=== PATIENT | male | born 1980 | race Caucasian/White ===

== ENCOUNTER 2016-08-10 21:08 | Emergency (ER) | payer SELFPAY ==
[2016-08-10 22:27] VITALS: BP 116/69
[2016-08-10] MEDS ORDERED: HYDROcodone/ACETAMIN 5-325 MG* 1 TAB PO ONE (22:44)
--- NOTE | 2016-08-10 22:50 | RAD ---
INDICATION: Left hand injury. TECHNIQUE: 4 views of the left hand were obtained. FINDINGS: The bones are in normal alignment. No fracture is seen. Joint spaces appear maintained. IMPRESSION: NO EVIDENCE FOR FRACTURE.
[2016-08-10] MEDS ORDERED: Tetan/Diph/Pertus SYR(Tdap)* 0.5 ML SYR(BOOSTRIX) use SYR IM ONE (23:04)
--- NOTE | 2016-08-11 00:26 | UC ---
Juloi Dupree Janilya, scribed for Lisa Plata MD on 08/10/16 at 2237 . Hand/Wrist HPI - HPI Summary HPI Summary: A 35 y/o male came in to [facility] presenting w/ a sudden onset of constant hand pain that happened today at 1500. Severity rated 6/10. He states his hand got caught in a loop of cable in a machine, which pulled his hand for couple feet. There is a skin scrape, but no obvious injuries. There is swelling and redness. Pt took 3 Ibuprofens for the pain. This is not due to a work injury. Last tetanus unrecalled. - History Of Current Complaint Chief Complaint: UCUpperExtremity Stated Complaint: HAND INJURY Hx Obtained From: Patient Onset/Duration: Sudden Onset, Lasting Hours, Still Present Severity Initially: Moderate Severity Currently: Moderate Pain Intensity: 6 Pain Scale Used: 0-10 Numeric Character Of Pain: Aching Aggravating Factor(s): Movement Alleviating: Nothing Associated Signs And Symptoms: Positive: Swelling, Redness Related History: Dominant Hand Right - Allergies/Home Medications Allergies/Adverse Reactions: Allergies Allergy/AdvReac Type Severity Reaction Status Date / Time Bee Venom Allergy Swelling Verified 08/10/16 22:27 Home Medications: Home Medications Ibuprofen TAB* [Advil TAB*] 600 mg PO PRN 08/10/16 [History] PMH/Surg Hx/FS Hx/Imm Hx Previously Healthy: Yes Endocrine History Of: Denies: Diabetes, Thyroid Disease Cardiovascular History Of: Denies: Cardiac Disorders, Hypertension Respiratory History Of: Denies: COPD, Asthma GI/ History Of: Denies: Ulcer - Surgical History Surgical History: Yes Surgery Procedure, Year, and Place: Pin Right Third Finger, 2004, [facility], TOE SPLINTER - Family History Known Family History: Positive: Hypertension, Diabetes - Social History Occupation: Employed Full-time Lives: With Family Alcohol Use: None Substance Use Type: None Smoking Status (MU): Never Smoked Tobacco - Immunization History Most Recent Influenza Vaccination: Not the 2014/2015 Season Review of Systems Constitutional: Negative Skin: Negative Eyes: Negative ENT: Negative Respiratory: Negative Cardiovascular: Negative Gastrointestinal: Negative Genitourinary: Negative Motor: Negative Neurovascular: Negative Musculoskeletal: Arthralgia - hand pain, Myalgia - hand pain, Other: - swelling and erythema of hand Neurological: Negative Psychological: Negative All Other Systems Reviewed And Are Negative: Yes Physical Exam Triage Information Reviewed: Yes Appearance: Well-Appearing, Well-Nourished, Pain Distress Vital Signs: Initial Vital Signs Temp 97.8 F 08/10/16 22:21 Pulse 77 08/10/16 22:21 Resp 16 08/10/16 22:21 BP 116/69 08/10/16 22:21 Pulse Ox 97 08/10/16 22:21 Vital Signs Reviewed: Yes Eyes: Positive: Conjunctiva Clear ENT: Positive: Normal ENT inspection, Hearing grossly normal. Negative: Muffled /hoarse voice Neck: Positive: Supple Respiratory: Positive: Lungs clear, Normal breath sounds, No respiratory distress Cardiovascular: Positive: RRR, No Murmur, Pulses Normal, Brisk Capillary Refill Musculoskeletal: Positive: Strength Intact, ROM Intact, Other: - swelling and abrasions 3rd and 4th Metacarpals left hand Neurological: Positive: Alert, Muscle Tone Normal Psychological Exam: Normal Skin Exam: Other - Superficial abrasions of 3rd and 4th metacarpals of dorsal left hand. Swelling in dorsum and palmar surface of left hand. Diagnostics - Radiology hand Xray Xray Interpretation: No Acute Changes - IMPRESSION: No evidence of fracture. Radiology Interpretation Completed By: Radiologist Hand/Wrist Course/Dx - Differential Dx/Diagnosis Differential Diagnosis/HQI/PQRI: Abrasion, Contusion, Fracture, Sprain, Strain Provider Diagnoses: left hand contusion Discharge - Discharge Plan Condition: Stable Disposition: HOME Patient Education Materials: Contusion in Adults (ED), Diphtheria/Acellular Pertussis/Tetanus Vaccine (By injection) Referrals: [facility] [Outside] - 2 Days Taiwo Dalton MD [Medical Doctor] - If Needed (orthopedist, as needed) Additional Instructions: Use ice and the chay for comfort as needed for the next 48 hrs. You may take tylenol or ibuprofen for pain as directed, as needed. Your tetanus shot was updated tonight. It is good for 10 years. Return to urgent care if you have any new or worsening symptoms. The documentation as recorded by the Julio samuel Janilya accurately reflects the service I personally performed and the decisions made by , Lisa Plata MD.
== END 2016-08-10 23:45 | disposition home or self-care (01) ==
LOC: UCEAST 21:08
DX: S60.222A Contusion of left hand, initial encounter (principal); W31.9XXA Contact with unspecified machinery, initial encounter; Y93.9 Activity, unspecified; Y92.9 Unspecified place or not applicable; Z23 Encounter for immunization
CPT/HCPCS: 90471; 90715; 99213; G0463

== ENCOUNTER 2017-01-16 21:40 | Emergency (ER) | payer SELFPAY ==
[2017-01-16 21:49] VITALS: BP 119/77
--- NOTE | 2017-01-16 22:04 | UC ---
Skin Complaint HPI - HPI Summary HPI Summary: skin lesion x 4 months located back of his neck + burning, has been seen multiple times at the urgent care, had treatment for bacterial infection/ tried steroids , nothing has been helping - History of Current Complaint Chief Complaint: UCSkin Time Seen by Provider: 01/16/17 21:42 Stated Complaint: RASH BACK OF NECK Hx Obtained From: Patient Onset/Duration: Gradual Onset, Lasting Weeks - 16, Still Present Timing: Constant Onset Severity: Moderate Current Severity: Moderate Location: Discrete - posterior neck Character: Redness Aggravating Factor(s): Nothing Alleviating Factor(s): Nothing Associated Signs & Symptoms: Positive: Rash - Allergy/Home Medications Allergies/Adverse Reactions: Allergies Allergy/AdvReac Type Severity Reaction Status Date / Time Bee Venom Allergy Swelling Verified 01/16/17 21:49 Review of Systems Constitutional: Negative Skin: Rash Eyes: Negative ENT: Negative Respiratory: Negative Cardiovascular: Negative Is Patient Immunocompromised?: No All Other Systems Reviewed And Are Negative: Yes PMH/Surg Hx/FS Hx/Imm Hx Previously Healthy: Yes - Surgical History Surgical History: Yes Surgery Procedure, Year, and Place: Pin Right Third Finger, 2004, [facility], TOE SPLINTER - Family History Known Family History: Positive: None, Hypertension, Diabetes - Social History Alcohol Use: None Substance Use Type: None Smoking Status (MU): Never Smoked Tobacco - Immunization History Most Recent Influenza Vaccination: Not the Season Physical Exam Triage Information Reviewed: Yes Appearance: Well-Appearing, No Pain Distress, Well-Nourished Vital Signs: Initial Vital Signs Temp 98.3 F 01/16/17 21:44 Pulse 76 01/16/17 21:44 Resp 16 01/16/17 21:44 BP 119/77 01/16/17 21:44 Pulse Ox 100 01/16/17 21:44 Vital Signs Reviewed: Yes Eye Exam: Normal ENT Exam: Normal ENT: Positive: Normal ENT inspection, Hearing grossly normal Neck exam: Normal Neck: Positive: Supple, Nontender, No Lymphadenopathy Respiratory: Positive: Chest non-tender, Lungs clear, Normal breath sounds, No respiratory distress Cardiovascular: Positive: RRR, No Murmur, Pulses Normal Abdominal Exam: Normal Skin: Positive: rashes - ulceration posterior neck , + erythema, not tender, no discharge Course/Dx - Diagnoses Provider Diagnoses: dermatitis neck Discharge - Discharge Plan Condition: Stable Disposition: HOME Prescriptions: Nystatin/Triamcinolone CR(NF) [Mycolog CREAM(NF)] 1 applic TOPICAL BID #60 gm Patient Education Materials: Dermatitis (ED) Referrals: No Primary Care Phys,NOPCP [Primary Care Provider] - Jeyson CARO,Armen Munoz [Medical Doctor] - As Soon As Possible
== END 2017-01-16 22:05 | disposition home or self-care (01) ==
LOC: UCCORT 21:40
DX: L30.9 Dermatitis, unspecified (principal)
CPT/HCPCS: 99212; G0463

== ENCOUNTER 2017-02-05 08:55 | Emergency (ER) | payer SELFPAY ==
[2017-02-05 09:24] VITALS: BP 132/72
--- NOTE | 2017-02-05 10:52 | UC ---
Throat Pain/Nasal Maxim HPI - HPI Summary HPI Summary: ONE WEEK OF COUGH, HEAD CONGESTION, HEADACHE. FEVER UNKNOWN. - History of Current Complaint Chief Complaint: UCGeneralIllness Stated Complaint: CONGESTION Time Seen by Provider: 02/05/17 10:13 Hx Obtained From: Patient Onset/Duration: Gradual Onset, Lasting Weeks, Still Present Severity: Moderate Cough: Nonproductive Associated Signs & Symptoms: Positive: Hoarseness, Sinus Discomfort, Nasal Discharge - Epiglottits Risk Factors Epiglottis Risk Factors: Negative - Allergies/Home Medications Allergies/Adverse Reactions: Allergies Allergy/AdvReac Type Severity Reaction Status Date / Time Bee Venom Allergy Swelling Verified 02/05/17 09:20 PMH/Surg Hx/FS Hx/Imm Hx Previously Healthy: Yes - Surgical History Surgical History: Yes Surgery Procedure, Year, and Place: Pin Right Third Finger, 2004, [facility], TOE SPLINTER - Family History Known Family History: Positive: None, Hypertension, Diabetes - Social History Occupation: Employed Full-time Lives: With Family Alcohol Use: None Substance Use Type: None Smoking Status (MU): Never Smoked Tobacco - Immunization History Most Recent Influenza Vaccination: Not the Season Review of Systems Constitutional: Fatigue Skin: Negative Eyes: Negative ENT: Nasal Discharge, Sinus Congestion, Sinus Pain/Tenderness Respiratory: Cough Cardiovascular: Negative Gastrointestinal: Negative Genitourinary: Negative Motor: Negative Neurovascular: Negative Musculoskeletal: Negative Neurological: Negative Psychological: Negative Is Patient Immunocompromised?: No All Other Systems Reviewed And Are Negative: Yes Physical Exam Triage Information Reviewed: Yes Appearance: Well-Appearing, No Pain Distress, Well-Nourished Vital Signs: Initial Vital Signs Temp 98.5 F 02/05/17 09:20 Pulse 78 02/05/17 09:20 Resp 16 02/05/17 09:20 BP 132/72 02/05/17 09:20 Pulse Ox 98 02/05/17 09:20 Vital Signs Reviewed: Yes Eye Exam: Normal ENT: Positive: Hearing grossly normal, Nasal congestion, TM bulging, TM dull Dental Exam: Normal Neck exam: Normal Neck: Positive: Supple, Nontender, No Lymphadenopathy Respiratory Exam: Normal Respiratory: Positive: Chest non-tender, Lungs clear, Normal breath sounds, No respiratory distress, No accessory muscle use Cardiovascular Exam: Normal Cardiovascular: Positive: RRR, No Murmur, Pulses Normal Abdominal Exam: Normal Musculoskeletal Exam: Normal Musculoskeletal: Positive: Strength Intact, ROM Intact Neurological Exam: Normal Psychological Exam: Normal Skin Exam: Normal Throat Pain/Nasal Course/Dx - Differential Dx/Diagnosis Differential Diagnosis/HQI/PQRI: Pharyngitis, Sinusitis, Tonsillitis, URI Provider Diagnoses: SINUSITIS Discharge - Discharge Plan Condition: Stable Disposition: HOME Prescriptions: Amoxicillin/Clavulanate TAB* [Augmentin TAB 875*] 875 mg PO BID #20 tab Benzonatate CAP* [Tessalon 100 MG CAP*] 100 mg PO TID PRN #15 cap PRN Reason: Cough Patient Education Materials: Sinusitis (ED) Referrals: [facility] [place] [facility] [Outside] No Primary Care Phys,NOPCP [Primary Care Provider] -
== END 2017-02-05 10:35 | disposition home or self-care (01) ==
LOC: UCEAST 08:55
DX: J32.9 Chronic sinusitis, unspecified (principal)
CPT/HCPCS: 99212; G0463

== ENCOUNTER 2017-04-08 09:15 | Emergency (ER) | payer MEDICAID ==
--- NOTE | 2017-04-08 11:05 | UC ---
Respiratory Complaint HPI - HPI Summary HPI Summary: 36 yo male with <48 hour hx of cough/congestion/fever/chills and severe myalgias Very fatigued no n/v/d no cp or sob sinus pressure/marrero and postnasal drip mild sore throat - History of Current Complaint Chief Complaint: UCRespiratory Stated Complaint: SORE THROAT COUGH CONGESTION Time Seen by Provider: 04/08/17 10:30 Hx Obtained From: Patient Onset/Duration: Gradual Onset, Lasting Days Timing: Constant Severity Initially: Mild Severity Currently: Moderate Pain Intensity: 7 Pain Scale Used: 0-10 Numeric Aggravating Factors: Deep Breaths, Nothing Alleviating Factors: Nothing Associated Signs And Symptoms: Positive: Fever, Chills, Nasal Congestion, Sinus Discomfort - Allergies/Home Medications Allergies/Adverse Reactions: Allergies Allergy/AdvReac Type Severity Reaction Status Date / Time Bee Venom Allergy Swelling Verified 04/08/17 10:25 Home Medications: Home Medications Phenylephrine-Chlorpheniramine [Camila-[place] Plus Cold &] 2 cap PO PRN 04/08/17 [History] PMH/Surg Hx/FS Hx/Imm Hx Previously Healthy: Yes - Surgical History Surgical History: Yes Surgery Procedure, Year, and Place: Pin Right Third Finger, 2004, [facility], TOE SPLINTER - Family History Known Family History: Positive: Hypertension, Diabetes - Social History Alcohol Use: None Substance Use Type: None Smoking Status (MU): Never Smoked Tobacco - Immunization History Most Recent Influenza Vaccination: Not the Season Review of Systems Constitutional: Fever, Chills, Fatigue Skin: Negative Eyes: Negative ENT: Sore Throat, Nasal Discharge, Sinus Congestion, Sinus Pain/Tenderness Respiratory: Cough Cardiovascular: Negative Gastrointestinal: Negative Genitourinary: Negative Motor: Negative Neurovascular: Negative Musculoskeletal: Myalgia Neurological: Negative Psychological: Negative Is Patient Immunocompromised?: No All Other Systems Reviewed And Are Negative: Yes Physical Exam Triage Information Reviewed: Yes Appearance: Well-Appearing, No Pain Distress, Well-Nourished Vital Signs: Initial Vital Signs Temp 97.3 F 04/08/17 10:22 Pulse 63 04/08/17 10:22 Resp 16 04/08/17 10:22 BP 98/63 04/08/17 10:22 Pulse Ox 100 04/08/17 10:22 Vital Signs Reviewed: Yes Eyes: Positive: Conjunctiva Clear ENT: Positive: Hearing grossly normal, Pharyngeal erythema, Nasal drainage, TMs normal, Uvula midline. Negative: Tonsillar swelling, Tonsillar exudate, Muffled voice, Hoarse voice, Dental tenderness, Sinus tenderness Neck: Positive: Supple, Nontender, No Lymphadenopathy Respiratory: Positive: No respiratory distress, No accessory muscle use, Crackles - right base Cardiovascular: Positive: RRR, No Murmur Musculoskeletal: Positive: ROM Intact, No Edema Neurological: Positive: Alert Psychological Exam: Normal Skin Exam: Normal UC Diagnostic Evaluation - Laboratory Pertinent Lab Values Are: WNL - RAPID INFLUENZA (-) O2 Sat by Pulse Oximetry: 100 - normal/not hypoxic - Radiology Xray Interpretation: No Acute Changes - cxr Radiology Interpretation Completed By: Radiologist Respiratory Course/Dx - Differential Dx/Diagnosis Provider Diagnoses: ACUTE BRONCHITIS Discharge - Discharge Plan Condition: Stable Disposition: HOME Prescriptions: Amoxicillin PO (*) [Amoxicillin 875 MG (*)] 875 mg PO BID #20 tab Patient Education Materials: Acute Bronchitis (ED) Forms: *Work Release Referrals: [facility] [place] [facility] [Outside] - If Needed (call to find a local MD) Additional Instructions: recheck in four days if not better sooner for worsening symptoms
--- NOTE | 2017-04-08 11:37 | RAD ---
HISTORY: Cough, fever, right lower lobe rales COMPARISONS: None VIEWS: 4: Frontal dual-energy and lateral views of the chest. FINDINGS: CARDIOMEDIASTINAL SILHOUETTE: The cardiomediastinal silhouette is normal. TU: The tu are normal. PLEURA: The costophrenic angles are sharp. No pleural abnormalities are noted. LUNG PARENCHYMA: The lungs are clear. ABDOMEN: The upper abdomen is clear. There is no subphrenic gas. BONES AND SOFT TISSUES: No bone or soft tissue abnormalities are noted. OTHER: None. IMPRESSION: NO ACTIVE CARDIOPULMONARY DISEASE.
[2017-04-08 11:43] VITALS: BP 113/58
== END 2017-04-08 12:00 | disposition home or self-care (01) ==
LOC: UCEAST 09:15
DX: J20.9 Acute bronchitis, unspecified (principal)
CPT/HCPCS: 71020; 87502; 99212; G0463

== ENCOUNTER 2017-06-09 21:18 | Emergency (ER) | payer OTHER ==
[2017-06-09 21:36] VITALS: BP 118/77
--- NOTE | 2017-06-09 21:51 | UC ---
Respiratory Complaint HPI - HPI Summary HPI Summary: 2-3 DAYS OF COUGH, CONGESTION, SINUS PRESSURE, PND. NO FEVER, N/V/D, EAR PAIN. HAD ST AT [facility] THAT IS IMPROVED. - History of Current Complaint Chief Complaint: UCRespiratory Stated Complaint: SINUS CONGESTION,COUGH Time Seen by Provider: 06/09/17 21:42 Hx Obtained From: Patient Onset/Duration: Gradual Onset, Lasting Days, Still Present Timing: Constant Severity Initially: Moderate Severity Currently: Moderate Pain Intensity: 5 Pain Scale Used: 0-10 Numeric Character: Cough: Nonproductive Aggravating Factors: Nothing Alleviating Factors: Nothing Associated Signs And Symptoms: Positive: URI, Nasal Congestion, Sinus Discomfort. Negative: Dyspnea, Fever, Chills, Pleuritic Chest Pain, Wheezing - Allergies/Home Medications Allergies/Adverse Reactions: Allergies Allergy/AdvReac Type Severity Reaction Status Date / Time bee venom protein (honey bee) Allergy redness, Verified 06/09/17 21:37 swelling at extremity PMH/Surg Hx/FS Hx/Imm Hx Previously Healthy: Yes - Surgical History Surgical History: Yes Surgery Procedure, Year, and Place: Pin Right Third Finger, 2004, [facility], TOE SPLINTER - Family History Known Family History: Positive: Hypertension, Diabetes - Social History Alcohol Use: None Substance Use Type: None Smoking Status (MU): Never Smoked Tobacco - Immunization History Most Recent Influenza Vaccination: Not the 2015/2016 Season Review of Systems Constitutional: Negative ENT: Sore Throat, Nasal Discharge Respiratory: Cough Cardiovascular: Negative Gastrointestinal: Negative All Other Systems Reviewed And Are Negative: Yes Physical Exam Triage Information Reviewed: Yes Appearance: Well-Appearing, No Pain Distress, Well-Nourished Vital Signs: Initial Vital Signs Temp 97.9 F 06/09/17 21:30 Pulse 67 06/09/17 21:30 Resp 18 06/09/17 21:30 BP 118/77 06/09/17 21:30 Pulse Ox 98 06/09/17 21:30 Vital Signs Reviewed: Yes Eyes: Positive: Conjunctiva Clear ENT: Positive: Hearing grossly normal, Pharynx normal, TMs normal Neck: Positive: Supple, Nontender, No Lymphadenopathy Respiratory Exam: Normal Cardiovascular Exam: Normal Abdomen Description: Positive: Soft Musculoskeletal: Positive: No Edema Neurological: Positive: Alert Psychological: Positive: Age Appropriate Behavior Skin: Negative: rashes UC Diagnostic Evaluation - Laboratory O2 Sat by Pulse Oximetry: 98 Respiratory Course/Dx - Differential Dx/Diagnosis Provider Diagnoses: ACUTE URI Discharge - Discharge Plan Condition: Stable Disposition: HOME Patient Education Materials: Upper Respiratory Infection (ED) Referrals: [facility] [Provider Group] - If Needed Additional Instructions: YOUR SYMPTOMS ARE LIKELY VIRALLY MEDIATED AND SHOULD RESOLVE ON THEIR OWN WITH TIME. REST, HYDRATE, OTC MEDS NEEDED. SEEK FOLLOW-UP IF YOU ARE NOT IMPROVING OVER THE NEXT 1-2 WEEKS.
== END 2017-06-09 21:58 | disposition home or self-care (01) ==
LOC: UCEAST 21:18
DX: J06.9 Acute upper respiratory infection, unspecified (principal)
CPT/HCPCS: 99211; G0463

== ENCOUNTER 2017-06-10 10:34 | Emergency (ER) | payer OTHER ==
[2017-06-10 12:04] VITALS: BP 132/81
--- NOTE | 2017-06-10 12:13 | UC ---
Respiratory Complaint HPI - HPI Summary HPI Summary: 3 weeks of cough , chest congestion, bronchial pain with cough--- and child with similar sx - History of Current Complaint Chief Complaint: UCRespiratory Stated Complaint: SORE THROAT COUGH FEVER CONGESTION Time Seen by Provider: 06/10/17 12:10 Hx Obtained From: Patient Onset/Duration: Gradual Onset, Lasting Weeks - 3, Still Present Timing: Constant Severity Initially: Moderate Severity Currently: Moderate Pain Intensity: 8 Pain Scale Used: 0-10 Numeric Character: Cough: Nonproductive Aggravating Factors: Nothing Alleviating Factors: Nothing Associated Signs And Symptoms: Positive: Pleuritic Chest Pain, URI - Allergies/Home Medications Allergies/Adverse Reactions: Allergies Allergy/AdvReac Type Severity Reaction Status Date / Time bee venom protein (honey bee) Allergy redness, Verified 06/10/17 12:04 swelling at extremity PMH/Surg Hx/FS Hx/Imm Hx Previously Healthy: Yes - Surgical History Surgical History: Yes Surgery Procedure, Year, and Place: Pin Right Third Finger, 2004, [facility], TOE SPLINTER - Family History Known Family History: Positive: Hypertension, Diabetes - Social History Occupation: Employed Full-time Lives: With Family Alcohol Use: None Substance Use Type: None Smoking Status (MU): Never Smoked Tobacco - Immunization History Most Recent Influenza Vaccination: Not the 2015/2016 Season Review of Systems Constitutional: Chills Skin: Negative Eyes: Negative ENT: Negative Respiratory: Cough, Other - bronchial pain with c Cardiovascular: Negative Gastrointestinal: Negative Genitourinary: Negative Motor: Negative Neurovascular: Negative Musculoskeletal: Negative Neurological: Negative Psychological: Negative Is Patient Immunocompromised?: No All Other Systems Reviewed And Are Negative: Yes Physical Exam Triage Information Reviewed: Yes Appearance: Well-Appearing, No Pain Distress, Well-Nourished Vital Signs: Initial Vital Signs Temp 98.0 F 06/10/17 12:01 Pulse 86 06/10/17 12:01 Resp 12 06/10/17 12:01 BP 132/81 06/10/17 12:01 Pulse Ox 100 06/10/17 12:01 Vital Signs Reviewed: Yes Eye Exam: Normal Eyes: Positive: Conjunctiva Clear ENT Exam: Normal ENT: Positive: Normal ENT inspection, Hearing grossly normal, Pharynx normal, TMs normal. Negative: Nasal congestion, Nasal drainage, Tonsillar swelling, Tonsillar exudate, Trismus, Muffled voice, Hoarse voice, Dental tenderness, Sinus tenderness, Uvula midline Dental Exam: Normal Neck exam: Normal Neck: Positive: Supple, Nontender, No Lymphadenopathy Respiratory Exam: Normal Respiratory: Positive: Chest non-tender, Lungs clear, Normal breath sounds, No respiratory distress, No accessory muscle use Cardiovascular Exam: Normal Cardiovascular: Positive: RRR, No Murmur, Pulses Normal, Brisk Capillary Refill Musculoskeletal Exam: Normal Musculoskeletal: Positive: Strength Intact, ROM Intact, No Edema Neurological Exam: Normal Neurological: Positive: Alert, Muscle Tone Normal Psychological Exam: Normal Skin Exam: Normal UC Diagnostic Evaluation - Laboratory O2 Sat by Pulse Oximetry: 100 Respiratory Course/Dx - Course Course Of Treatment: Zithromax, prednisone, albuterol, increase fluids, follow with pcp - Differential Dx/Diagnosis Provider Diagnoses: Acute Bronchitis with Bronchospasm Discharge - Discharge Plan Condition: Stable Disposition: HOME Prescriptions: Albuterol HFA INHALER* [Ventolin HFA Inhaler*] 2 puff INH Q4H PRN #1 mdi PRN Reason: cough chest congestion Azithromycin TAB* [Zithromax TAB (Z-DRE) 250 mg #6 tabs] 2 tab PO .TODAY, THEN 1 DAILY #1 dre predniSONE TAB* [Deltasone TAB*] 20 mg PO DAILY #9 tab Patient Education Materials: How to Use a Metered-Dose Inhaler (ED), Acute Bronchitis (ED) Referrals: [facility] [place] [facility] [Outside] - If Needed
== END 2017-06-10 12:32 | disposition home or self-care (01) ==
LOC: UCEAST 10:34
DX: J20.9 Acute bronchitis, unspecified (principal)
CPT/HCPCS: 99212; G0463

== ENCOUNTER 2018-02-02 09:32 | Emergency (ER) | payer OTHER ==
[2018-02-02 10:21] VITALS: BP 119/74
--- NOTE | 2018-02-02 10:22 | UC ---
Ear Complaint HPI - HPI Summary HPI Summary: 37 yo male presents with left ear pain that began early this morning. He says that it feels like he is being stabbed in the ear - sharp pain with radiation down into left throat and up left uatsdin. Took ibuprofen this morning with mild relief. Denies fever, chills, sinus symptoms, cough, sore throat, SOB, chest pain. - History of Current Complaint Chief Complaint: UCEar Stated Complaint: EAR PAIN Time Seen by Provider: 02/02/18 10:22 Hx Obtained From: Patient Severity Initially: Severe Severity Currently: Severe Pain Intensity: 8 Pain Scale Used: 0-10 Numeric - Allergies/Home Medications Allergies/Adverse Reactions: Allergies Allergy/AdvReac Type Severity Reaction Status Date / Time bee venom protein (honey bee) Allergy redness, Verified 02/02/18 10:21 swelling at extremity Home Medications: Home Medications Ibuprofen TAB* [Advil TAB*] 200 mg PO Q6H PRN 02/02/18 [History Confirmed ] PMH/Surg Hx/FS Hx/Imm Hx Respiratory History: Asthma - Surgical History Surgical History: Yes Surgery Procedure, Year, and Place: Pin Right Third Finger, 2004, [facility], TOE SPLINTER - Family History Known Family History: Positive: Hypertension, Diabetes - Social History Occupation: Employed Full-time Lives: With Family Alcohol Use: None Substance Use Type: None Smoking Status (MU): Never Smoked Tobacco - Immunization History Most Recent Influenza Vaccination: Not the 2016/2016 Season Review of Systems Constitutional: Negative Skin: Negative Eyes: Negative ENT: Ear Ache Respiratory: Negative Cardiovascular: Negative Gastrointestinal: Negative Neurological: Negative Psychological: Negative All Other Systems Reviewed And Are Negative: Yes Physical Exam - Summary Physical Exam Summary: GENERAL: NAD. WDWN. No pain distress. SKIN: No rashes, sores, lesions, or open wounds. HEENT: Head: AT/NC Eyes: EOM intact. Conjunctiva clear without inflammation or discharge. Ears: Hearing grossly normal. LEFT TM with moderate-severe erythema and bulging. No canal edema or drainage. Nose: Nasal mucosa pink and moist. NTTP maxillary and frontal sinus. Throat: Posterior oropharynx without exudates, erythema, or tonsillar enlargement. Uvula midline. NECK: Supple. Nontender. No lymphadenopathy. CHEST: CTAB. No r/r/w. No accessory muscle use. Breathing comfortably and in no distress. CV: RRR. Without m/r/g. Pulses intact. NEURO: Alert. PSYCH: Age appropriate behavior. Triage Information Reviewed: Yes Vital Signs: Initial Vital Signs Temp 98.3 F 02/02/18 10:17 Pulse 74 02/02/18 10:17 Resp 16 02/02/18 10:17 BP 119/74 02/02/18 10:17 Pulse Ox 98 02/02/18 10:17 Vital Signs Reviewed: Yes Ear Complaint Course/Dx - Course Course Of Treatment: Left otitis media - Differential Dx/Diagnosis Provider Diagnoses: Left otitis media Discharge - Sign-Out/Discharge Documenting (check all that apply): Patient Departure All imaging exams completed and their final reports reviewed: No Studies - Discharge Plan Condition: Stable Disposition: HOME Prescriptions: Albuterol HFA INHALER* [Ventolin HFA Inhaler*] 2 puff INH Q6H PRN #1 mdi PRN Reason: Sob/Wheezing Amoxicillin PO (*) [Amoxicillin 875 MG (*)] 875 mg PO BID #14 tab Patient Education Materials: Ear Infection (ED) Forms: *Work Release Referrals: No Primary Care Phys,NOPCP [Primary Care Provider] - Additional Instructions: If you develop a fever, shortness of breath, chest pain, new or worsening symptoms - please call your PCP or go to the ED. - Billing Disposition and Condition Condition: STABLE Disposition: Home
== END 2018-02-02 10:40 | disposition home or self-care (01) ==
LOC: UCEAST 09:32
DX: H66.92 Otitis media, unspecified, left ear (principal); Z91.030 Bee allergy status
CPT/HCPCS: 99212; G0463

== ENCOUNTER 2018-10-30 18:23 | Emergency (ER) | payer SELFPAY ==
[2018-10-30 18:36] VITALS: BP 107/68
[2018-10-30] MEDS ORDERED: Lidocaine 2% w EPI 1:100,000* 20 ML VIAL INJ ONE (18:50)
--- NOTE | 2018-10-30 19:02 | UC ---
Laceration HPI - HPI Summary HPI Summary: Was using a metal cutting slab grinder and cut right hand. Tetanus UTD. - History Of Current Complaint Chief Complaint: UCWounds Stated Complaint: RIGHT HAND LAC Time Seen by Provider: 10/30/18 18:39 Hx Obtained From: Patient Laceration Location: Hand - right Mechanism Of Injury: Sharp Trauma - grinding cutting wheel Onset/Duration: Sudden Onset Severity: Moderate Pain Intensity: 5 Aggravating Factors: Movement Related History: Dominant Hand Left - Allergies/Home Medications Allergies/Adverse Reactions: Allergies Allergy/AdvReac Type Severity Reaction Status Date / Time bee venom protein (honey bee) Allergy redness, Verified 10/30/18 18:37 swelling at extremity Home Medications: Home Medications NK [No Home Medications Reported] 10/30/18 [History Confirmed 10/30/18] PMH/Surg Hx/FS Hx/Imm Hx Previously Healthy: Yes - Surgical History Surgical History: Yes Surgery Procedure, Year, and Place: Pin Right Third Finger, 2004, [facility], TOE SPLINTER - Family History Known Family History: Positive: Hypertension, Diabetes - Social History Occupation: Employed Full-time Lives: Alone - with girlfriend Alcohol Use: None Substance Use Type: None Smoking Status (MU): Never Smoked Tobacco - Immunization History Most Recent Influenza Vaccination: Not the Season Review of Systems All Other Systems Reviewed And Are Negative: Yes Skin: Positive: Other - right hand laceration. Physical Exam Triage Information Reviewed: Yes Appearance: Well-Appearing, No Pain Distress, Well-Nourished Vital Signs: Initial Vital Signs Temp 98 F 10/30/18 18:34 Pulse 85 10/30/18 18:34 Resp 12 10/30/18 18:34 BP 107/68 10/30/18 18:34 Pulse Ox 99 10/30/18 18:34 Vital Signs Reviewed: Yes Eyes: Positive: Conjunctiva Clear Neck exam: Normal Respiratory Exam: Normal Cardiovascular Exam: Normal Musculoskeletal Exam: Normal Neurological Exam: Normal Psychological Exam: Normal Skin: Positive: Other - right hand laceration. Images Hands: 1 - 2.1 cm laceration Laceration Repair - Laceration Repair 1 Description: Linear Laceration Size After Repair: Length (cm) - 22.1 Modified For Repair: No Type Injection: Local Anesthesia Used: 2.0% Lido Additive Used (in ml): Epi Cleansing Completed Via Routine Prep: Yes Irrigation With Pressure Irrigation Device: Yes Closure Material: Sutures Closure Method: Single Layer - #9 running sutures Suture Of: Skin Suture Type: Nylon - 4-0 Laceration Course/Dx - Differential Dx - Laceration/Wound Differental Diagnoses: Abrasion, Avulsion, Laceration - Diagnosis Provider Diagnosis: Laceration of right hand Discharge - Sign-Out/Discharge Documenting (check all that apply): Patient Departure All imaging exams completed and their final reports reviewed: No Studies - Discharge Plan Condition: Stable Disposition: HOME Patient Education Materials: Laceration (ED), Care For Your Stitches (ED) Referrals: No Primary Care Phys,NOPCP [Primary Care Provider] - (10 days suture removal) Additional Instructions: Ok to shower tonight. - Billing Disposition and Condition Condition: STABLE Disposition: Home
== END 2018-10-30 19:32 | disposition home or self-care (01) ==
LOC: UCCORT 18:23
DX: S61.411A Laceration without foreign body of right hand, initial encounter (principal); W31.1XXA Contact with metalworking machines, initial encounter; Y92.9 Unspecified place or not applicable
CPT/HCPCS: 12001; 99211; G0463